=== PATIENT | male | born 1985 | race Caucasian/White ===

== ENCOUNTER 2019-11-17 12:50 | Emergency (ER) | payer BC ==
[~2019-11-17] VITALS: Ht 182.9 cm; Wt 88.5 kg
--- NOTE | 2019-11-17 19:49 | EKG ---
[facility] [address] [place], [place] [address] Signed Sinus tachycardia Otherwise normal ECG No previous ECGs available Confirmed by DAVID CARRILLO MD [id number] on 11/17/2019 7:48:53 PM Electronically Signed By: DAVID CARRILLO MD 11/17/19 194 PATIENT NAME: CONCHITA BRADSHAW Electrocardiogram DATE OF : 81 PHYSICIAN: DAVID CARRILLO MD REPORT #: [id number] REPORT IS CONFIDENTIAL AND NOT TO BE RELEASED WITHOUT AUTHORIZATION
== END 2019-11-17 14:52 | disposition home or self-care (01) ==
LOC: ED 12:50
DX: R09.1 Pleurisy (principal); F17.200 Nicotine dependence, unspecified, uncomplicated
CPT/HCPCS: 71046; 80053; 84484; 85025; 85379; 93005; 93010; 99285-25